=== PATIENT | female | born 1955 | race African-American/Black ===

== ENCOUNTER → 2017-03-11 | Outpatient (CLI) | payer OTHER, SELFPAY ==
[2017-03-11 16:38] LABS: CHLORIDE,CL 106 mmol/L (98-110); SODIUM,NA 139 mmol/L (136-146)
== END ==
LOC: MW.CHOBGYN 15:58
PROVIDERS: ATTEND Nurse Practitioner Women's Health
DX: R63.4 Abnormal weight loss (principal); E07.89 Other specified disorders of thyroid; M25.511 Pain in right shoulder; Z86.39 Personal history of other endocrine, nutritional and metabolic disease
CPT/HCPCS: 36415; 80053; 83036; 84439; 84443; 84681; 85025; 86140

== ENCOUNTER → 2017-03-18 | Outpatient (CLI) | payer OTHER, SELFPAY ==
--- NOTE | 2017-03-19 10:24 | US ---
EXAMINATION: Thyroid ultrasound HISTORY: Other specified disorders COMPARISON: None TECHNIQUE: Grayscale, color Doppler images obtained of the thyroid gland. FINDINGS: Both thyroid glands are enlarged and mildly heterogeneous in generalized echotexture. The right thyroid lobe measures 6.1 x 4.1 x 3 cm and the left thyroid lobe measures 6.2 x 2.2 x 2.4 cm. The isthmus measures 0.8 cm. There is mildly increased color Doppler flow bilaterally. There is an o melecio hypoechoic nodule within the isthmus measuring 1.6 x 0.8 cm. This demonstrates decreased color D oppler flow internally relative to the adjacent thyroid gland. IMPRESSION: 1. Enlarged thyroid gland consistent with a goiter. 2. Borderline small 1.6 x 0.8 cm hypoechoic nodule within the isthmus. This is amenable to fine-need le aspiration or one year follow-up.
== END ==
LOC: MW.US 14:24
PROVIDERS: ATTEND Nurse Practitioner Women's Health
DX: E07.89 Other specified disorders of thyroid (principal); R63.4 Abnormal weight loss; Z86.39 Personal history of other endocrine, nutritional and metabolic disease; M25.511 Pain in right shoulder; E04.9 Nontoxic goiter, unspecified
CPT/HCPCS: 36415; 76536-26; 76536-50; 83036; 86140

== ENCOUNTER → 2017-03-21 | Outpatient (CLI) | payer OTHER, SELFPAY | END | disposition home or self-care (01) | LOC: MW.CHOBGYN 12:07 | PROVIDERS: ATTEND Nurse Practitioner Women's Health | DX: E07.89 Other specified disorders of thyroid (principal); E05.90 Thyrotoxicosis, unspecified without thyrotoxic crisis or storm | CPT/HCPCS: 36415; 84445; 86376; 86800 ==

== ENCOUNTER → 2017-03-27 | Outpatient (CLI) | payer OTHER, SELFPAY ==
--- NOTE | 2017-04-01 13:49 | NM ---
EXAM DATE: 03/27/17 PATIENT'S AGE: 61 Patient: LASHAUN WERNER Facility: [facility] Site Site : 1955 Study: NM-Thyroid [id number]/27/2017 12:37:18 PM Ordering Physician: HAMLET Final Report: Indication: Thyrotoxicosis. Technique: 342 microcuries of iodine 123 has been given orally 24 hours prior to imaging. Findings: There is an abnormal elevated 24 uptake at 48.2 percent. Normal is between 10 and 30 percent. There is homogeneous uptake of the radiotracer by the left and right thyroid. The gland appears prominent. Impression: Abnormal 24 uptake is identified at 48.2 percent. Homogeneous uptake is identified. Pattern is most compatible with Graves disease. Dictated by Edmar Sanchez MD @ Mar 28 2017 12:49PM Signed by: Edmar Sanchez MD @03/28/2017 12:52:17 PM (Electronic Signature) Report Signed by Proxy. [facility]
== END ==
LOC: MW.NM 11:55
PROVIDERS: ATTEND Nurse Practitioner Women's Health
DX: E07.89 Other specified disorders of thyroid (principal); E05.90 Thyrotoxicosis, unspecified without thyrotoxic crisis or storm
CPT/HCPCS: 78014; A9516

== ENCOUNTER → 2017-03-28 | Outpatient (CLI) | payer OTHER, SELFPAY ==
--- NOTE | 2017-03-28 16:30 | CR ---
EXAM DATE: 03/28/17 PATIENT'S AGE: 61 Patient: LASHAUN WERNER Facility: [place], [place] Site . Site : 1955 Study: XRay Chest [id number]/27/2017 11:47:23 AM [facility]ing Physician[facility] Final Report: Indication: Abnormal weight loss. Technique: PA and lateral. Comparison: None. Findings: Patient rotated on the PA image. Shallow inspiration with crowded markings. No obvious infiltrate. No pleural fusion. Heart borderline enlarged. Pulmonary veins normal in caliber. No significant bony abnormality. Impression: 1. Lungs low in volume, clear. 2. Borderline cardiomegaly. Dictated by Troy Pereira MD @ Mar 28 2017 3:28PM (Electronic Signature) Report Signed by Proxy. [facility]
== END ==
LOC: MW.CHOBGYN 08:04
PROVIDERS: ATTEND Nurse Practitioner Women's Health
DX: R63.4 Abnormal weight loss (principal); I51.7 Cardiomegaly
CPT/HCPCS: 71020; 71020-26

== ENCOUNTER → 2017-04-12 | Outpatient (CLI) | payer OTHER, SELFPAY ==
--- NOTE | 2017-04-12 20:47 | CR ---
EXAM DATE: 04/12/17 PATIENT'S AGE: 61 Patient: LASHAUN WERNER Facility: [place], [place] Site . Site : 1955 Study: XRay Shoulder Right [id number]/12/2017 12:16:38 PM Ordering Physician: Elina Harrington Final Report: HISTORY: Right shoulder pain. Technique: Three views of the right shoulder. Comparison: There is no acute fracture or dislocation. The glenohumeral joint space appears maintained. Minor AC joint arthrosis. Impression: 1. No acute fracture or dislocation. 2. 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 Dictated by Cj Fairchild MD @ Apr 12 2017 2:38PM (Electronic Signature) Report Signed by Proxy. [facility]
== END ==
LOC: MW.CHOBGYN 11:02
PROVIDERS: ATTEND Nurse Practitioner Women's Health
DX: M25.511 Pain in right shoulder (principal); M89.8X1 Other specified disorders of bone, shoulder; M19.011 Primary osteoarthritis, right shoulder
CPT/HCPCS: 73030-26-RT; 73030-RT